=== PATIENT | female | born 1990 | race Caucasian/White ===

== ENCOUNTER 2022-12-01 09:38 | Inpatient (IN) ==
[2022-12-01] MEDS ORDERED: OXYTOCIN 30 UNITS/500 ML BAG IV PRN ×2 (09:54→14:17)
[2022-12-01] MEDS ORDERED: LACTATED RINGER'S 1,000 ML IV PRN (09:54)
[2022-12-01] MEDS ORDERED: LIDOCAINE 1% LOCAL 20 ML VIAL INFIL PRN (09:54)
--- NOTE | 2022-12-01 10:29 | History & Physical Report ---
Date of Service December 01, 2022 Assessment & Plan (1) Encounter for supervision of normal in multigravida: Plan: Multiparous female in active labor at 38-6/7 weeks. Patient is requesting an unmedicated . plan reviewed. Anticipate vaginal delivery. Admission and Anticipated Discharge Date Admission Date: December 01, 2022 History of Present Illness Primary Care Provider: AMANDA Caldera Patient is a 32-year-old 2 para 1-0-0-1 female EDC of 12/09/2022 who presents at 38-6/7 weeks in active labor. Contractions have been every 3 to 4 minutes since 30 this morning. Membranes have not ruptured and there has been no bloody show. has been uncomplicated. GBS negative. Blood type O-. Allergies Allergy/AdvReac Type Severity Reaction Status Date / Time No Known Allergies Allergy Verified 12/01/22 10:26 Home Medications Medication Instructions Recorded Confirmed Type prenat.vits,alie,ijk-ggoy-vcggq 1 tab PO DAILY 04/25/22 12/01/22 History Patient History Medical History Exposure to COVID-19 virus No significant past medical history Varicella vaccination Surgical History History of back surgery lami/discectomy in 2010, no hardware. L4-5. S/P wisdom tooth extraction Family History Father Myocardial infarction Denies family history of Ovarian cancer Prostate cancer Breast cancer Colorectal cancer Social History (Updated 04/25/22 @ 08:55 by Sarah Dai) Smoking Status: Never smoker Second Hand Exposure: No; Do You Dip or Chew Tobacco: No; Hx Alcohol Use: Yes Alcohol type: beer and wine Alcohol Intake Frequency: 2-3 x/Week Hx Substance Use: No Preferred Language: Bangladeshi Communication Ability: Effective Visual Impairment: No Limitations Hearing Ability: Normal Communications Clerk Required: No Beliefs That Will Affect Care: None marital status: marital status details: Justin Worley (32) [phone] Current Living Situation: Spouse Current Living Situation Comment: spouse and 3.5yo daughter current occupational status: employed current occupation: [employer] Other Information That Helps Us Care for You: No Feels Safe at Home: Yes Safety Concerns: Feels Safe At This Time Childhood Exposure to Second-Hand Smoke: No Diet: regular Dental Care, Regularly: Yes Physical Activity Frequency: Daily Seatbelt Use: always Sunscreen Use: Yes Review of Systems All systems reviewed & are unremarkable except as noted in HPI & below Physical Exam Constitutional: WD/WN, vitals as above Psychiatric: A+Ox3, euthymic affect Genitourinary: OB Exam Abdomen: + vertex and + regular contractions (3-4 minutes) Manual OB Exam: + cervical dilation 6 cm, + cervical effacement 100% and + station -2 OB Exam Monitor Tracing: + external FHT monitor used, + external uterine monitor used, + category I and + normal FHT variability Results & Data Vital Signs (Past 12 Hours) Vital Signs Temp Pulse Resp BP 12/01/22 10:11 98.6 F 20 12/01/22 10:08 88 124/68 Coding Level of Care Code None Diagnoses Encounter for supervision of normal in multigravida Z34.80
[2022-12-01 10:37] LABS: Hematocrit (blood only) 38.2 % (37.0-47.0); Hemoglobin 13.7 g/dl (12.0-16.0); Mean Corpuscular Hemoglobin 32.7 pg (25.0-34.0); Mean Corpuscular Hgb Conc 35.9 g/dL (32.0-36.0); Mean Corpuscular Volume 91.2 fL (80.0-100.0); Mean Platelet Volume 10.4 fL (9.4-12.4); Platelet Count 214 K/uL (130-400); RDW Coefficient of Variation 13.1 % (11.5-14.5); Red Blood Count 4.19 M/uL (4.20-5.40); White Blood Count 11.94 K/ul (4.8-10.8)
[2022-12-01] MEDS ORDERED: bisacodyL 10 MG SUPP PR PRN (14:17)
[2022-12-01] MEDS ORDERED: HYDROCORTISONE ACETATE 25 MG SUPP PR PRN (14:17)
[2022-12-01] MEDS ORDERED: oxyCODONE/ACETAMINOPHEN 5mg/325mg TAB PO PRN (14:17)
[2022-12-01] MEDS ORDERED: DIPHTHERIA/TETANUS/PERTUSSIS Vaccine (Tdap, Age 7+yrs) 0.5mL SYR/VL IM ONE (14:17)
[2022-12-01] MEDS ORDERED: BENZOCAINE 20% AER SPR 82.5 GM CAN EXT PRN (14:17)
[2022-12-01] MEDS ORDERED: ACETAMINOPHEN 325 MG TAB PO PRN (14:17)
--- NOTE | 2022-12-01 14:45 | Delivery Summary ---
Vaginal Delivery Summary Date of Service December 01, 2022 Vaginal Delivery Summary [facility] Patient is a 32-year-old 2 para 1-0-0-1 female who presented at 38-6/7 weeks in active labor. She progressed to 8 cm dilation and excepted rupture of membranes for clear fluid. She progressed to full dilation with the urge to push. She pushed effectively over intact perineum for delivery of a viable female infant. A loose nuchal cord was reduced after delivery of the head. The rest of the infant delivered with maternal effort and flexion of the hips. The infant was placed on the mother's abdomen for further attention and drying. After stimulation she was vigorous crying and moving all 4 limbs. After cord blood was obtained, attempted expression of the placenta was unsuccessful. After waiting 20 minutes, gentle traction on the cord resulted in avulsion of the cord from the placenta. Placenta was then extracted through the cervix intact. bleeding was controlled with dilute Pitocin and fundal massage. Perineum was intact after delivery. Estimated blood loss was 400 cc. Mother and infant were doing well after delivery. [facility] [place] Delivery Type Details: [facility]
[2022-12-01] MEDS: IBUPROFEN 600 MG TAB PO PRN ×2 (16:43→20:24)
[2022-12-01] MEDS: DOCUSATE SODIUM 100 MG CAP PO SCH (20:24)
--- NOTE | 2022-12-02 06:11 | Obstetrical Progress Note ---
Date of Service December 02, 2022 Assessment & Plan (1) Rh negative status during : (2) Encounter for supervision of normal in multigravida: Plan Heidy is a 32 y/o female who is PPD #1 following delivery at 38w6d. -Meeting all milestones -Vital signs reviewed and WNL -O-/GBS negative/Rubella immune, received Rhogam in -Follow up in 6 weeks for appointment -Continue routine care -Plan for d/c later today Admission and Anticipated Discharge Date Admission Date: December 01, 2022 Supervising Physician Co-Signing Physician Notes Resident Physician Supervision Note: I interviewed and examined the patient. Discussed with Dr. Cedillo and agree with findings and plan as documented in the note. Any exceptions or clarifications are listed here: [None] Documented By: Cherie Lynn MD, FACOG Subjective Heidy is a 32 y/o female who is PPD #1 following delivery at 38w6d. She reports feeling well overall this morning. Notes abdominal cramping with breast feeding but pain managed. Voiding without issue, no dysuria. Tolerating meals overnight and able to ambulate some. Has some persistent lochia with some improvement this morning. Currently breast feeding. Review of Systems Constitutional: no fever, no chills and no sweats Respiratory: no cough, no dyspnea and no wheezing Cardiovascular: no chest pain, no palpitations and no calf pain Genitourinary: no dysuria Neurologic: no headache(s) Physical Exam Constitutional: WD/WN, vitals as above no acute distress Respiratory: no respiratory distress Auscultation: lungs clear to auscultation bilaterally; no rales, no rhonchi and no wheezes Cardiovascular: RRR, no murmur, no edema Extremities: no calf tenderness and no edema Negative Jenelle's sign bilaterally. Skin: no rashes, warm and dry Genitourinary: Uterine fundus firm, palpable below the umbilicus. Results & Data Vital Signs (Past 12 Hours) Vital Signs Temp Pulse Resp BP Pulse Ox O2 Del Method 12/02/22 03:35 36.9 C 60 18 107/68 96 Room Air 12/01/22 23:01 36.6 C 75 18 104/70 97 Room Air 12/01/22 18:55 37.2 C 67 18 104/65 96 Room Air Resident Activity Tracking Resident Involvement: Resident Care Provided Care Provided: OB Delivery
[2022-12-02] MEDS: DOCUSATE SODIUM 100 MG CAP PO SCH (07:42)
[2022-12-02] MEDS: IBUPROFEN 600 MG TAB PO PRN (07:42)
[2022-12-02] MEDS ORDERED: PRENATAL VITAMIN 1 TAB PO SCH (08:00)
[2022-12-02 09:04] LABS: Hematocrit (blood only) 31.9 % (37.0-47.0); Hemoglobin 11.7 g/dl (12.0-16.0); Mean Corpuscular Hemoglobin 33.4 pg (25.0-34.0); Mean Corpuscular Hgb Conc 36.7 g/dL (32.0-36.0); Mean Corpuscular Volume 91.1 fL (80.0-100.0); Mean Platelet Volume 10.5 fL (9.4-12.4); Platelet Count 195 K/uL (130-400); RDW Coefficient of Variation 13.3 % (11.5-14.5); RDW Standard Deviation 43.6 fL (36.4-46.3)
[2022-12-02] MEDS ORDERED: bisacodyL 5 MG TABEC PO SCH (20:00)
== END 2022-12-02 14:30 | disposition home or self-care (01) | DRG 807 ==
LOC: OPB 09:38 → 4S1 09:38 → 4E2 18:10